=== PATIENT | female | born 1995 | race Caucasian/White ===

== ENCOUNTER 2017-11-23 05:48 | Emergency (ER) | payer OTHER ==
[~2017-11-23] VITALS: Ht 165.1 cm; Wt 107.5 kg
[~2017-11-23 05:48] MED LIST: IBU600 MG PO; MOTRIN 600 MG600 MG PO; PERCOCET 325 MG1 TA2 PO; PRENATAL PLUS I1 TA1 PO; PROZAC20 M2 PO; ZOFRAN ODT4 M1 PO
[2017-11-23] MEDS ORDERED: PRENATAL MULTI1 EAC2 PO (06:00)
--- NOTE | 2017-11-23 06:01 | ED INFLUENZA/URI COMPLAINT ---
History of Present Illness General Chief Complaint: Upper Respiratory Sx/Fever Stated Complaint: 24WKS PREG TP THINKS SHE HAS THE FLU Source: patient Exam Limitations: no limitations Vital Signs & Intake/Output Vital Signs & Intake/Output Vital Signs Date Time Temp Pulse Resp B/P B/P Pulse O2 O2 Flow FiO2 Mean Ox Delivery Rate 11/23 0533 99.1 118 18 97 Room Air 11/23 0600 97 Room Air 11/23 0557 98.7 139 18 115/79 97 Room Air Allergies Coded Allergies: MDX - PCN (penicillin) (PCN (PENICILLIN)) (Intermediate, FACIAL SWELLING ) Reconcile Medications Ondansetron (Zofran Odt) 4 MG TAB.RAPDIS 1 TAB SL TID PRN nausea Pnv No.122/Iron/Folic Acid ( Multi Tablet) 27 MG IRON-800 MCG TABLET 1 TAB PO DAILY (Reported) Triage Note: PT FROM HOME C/O BODY ACHES, N/V/D X1 DAY. PT IS 24 WEEKS , [facility], DUE DATE Mar. PT STATES THAT SINCE YESTERDAY SHE HAS HAD A LOWER GRADE TEMP OF 99.0, N/V/D OF 15+ EPISODES AND BODY ACHES. VSS. A&0X3, NO DISTRESS IN TRIAGE. Triage Nurses Notes Reviewed? yes Onset: Gradual Duration: day(s): Timing: recent history Severity: moderate Prior Episodes/Possible Cause: no prior episodes Modifying Factors: Improves With: rest. Associated Symptoms: n/v/d, muscle aches : Yes Patient currently breastfeeds: No HPI: 22 yo woman, 24 week gestation, presents with nausa, vomiting, diarrhea since yesterday afternoon, soon after eating at [employer]. She notes, "I've been vomiting every hour... and I've had diarrhea all day... My body aches and it feels like I have a low grade fever." She notes no contractions, dysuria, vaginal bleeding or discharge. She is otherwise well. (Delfin PAIZ,Jose Gomez) Past History Travel History Traveled to [place] past 21 day No Medical History Any Pertinent Medical History? 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 No (Delfin PAIZ,Jose Gomez) Review of Systems Review of Systems Constitutional: Reports: no symptoms. EENTM: Reports: no symptoms. Respiratory: Reports: no symptoms. Cardiovascular: Reports: no symptoms. GI: Reports: no symptoms. Genitourinary: Reports: no symptoms. Musculoskeletal: Reports: no symptoms. Skin: Reports: no symptoms. Neurological/Psychological: Reports: no symptoms. Hematologic/Endocrine: Reports: no symptoms. Immunologic/Allergic: Reports: no symptoms. All Other Systems: Reviewed and Negative (Delfin PAIZ,Jose Gomez) Physical Exam Physical Exam General Appearance: well developed/nourished, no apparent distress Head: atraumatic, normal appearance Eyes: Bilateral: normal appearance. Ears, Nose, Throat: normal ENT inspection, tacky membranes Neck: normal inspection, supple Respiratory: normal breath sounds, chest non-tender, no respiratory distress, quiet respiration, lungs clear Cardiovascular: regular rate/rhythm, edema Gastrointestinal: normal bowel sounds, soft, non-tender, no organomegaly Back: normal inspection Extremities: normal inspection, normal capillary refill, normal range of motion, no edema Neurologic/Psych: no motor/sensory deficits, awake, alert, oriented x 3 Skin: intact, normal color, warm/dry Core Measures Sepsis Present: No Sepsis Focused Exam Completed? No (Delfin PAIZ,Jose Gomez) Progress Differential Diagnosis: viral syndrome vs food poisoning vs other. Plan of Care: Orders Procedure Date/time Status BLOOD CULTURE 11/23 0917 Active Add-on Test (ER Only) 11/23 912 Active CULTURE,URINE 11/23 0833 Active URINALYSIS 11/23 605 Complete LIPASE 11/23 605 Complete HEPATIC FUNCTION PANEL 11/23 605 Complete CBC WITHOUT DIFFERENTIAL 11/23 605 Complete BASIC METABOLIC PANEL 11/23 605 Complete AMYLASE 11/23 06 Complete Laboratory Tests 11/23/17 0835: Urine Color YEL, Urine Clarity CLDY H, Urine pH 6.0, Ur Specific [place] 1.010, Urine Protein NEG, Urine Ketones 15 H, Urine Nitrite NEG, Urine Bilirubin NEG, Urine Urobilinogen 0.2, Ur Leukocyte Esterase SMALL H, Ur Microscopic SEDIMENT EXAMINED, Urine RBC 1-3, Urine WBC 3-5 H, Ur Epithelial Cells MANY H, Urine Bacteria FEW H, Urine Hemoglobin NEG, Urine Glucose NEG 11/23/17 0613: Anion Gap 10, Estimated GFR > 60, BUN/Creatinine Ratio 8.6, Glucose 96, Calcium 9.2, Total Bilirubin 0.4, Direct Bilirubin 0.2, AST 25, ALT 22, Alkaline Phosphatase 99, Total Protein 6.4, Albumin 3.3 L, Amylase 65, Lipase 84, CBC w Diff MAN DIFF ORDERED, RBC 4.24, MCV 90.8, MCH 31.3 H, MCHC 34.4, RDW 13.8, MPV 8.3, Gran % 88.1 H, Lymphocytes % 6.5 L, Monocytes % 4.3, Eosinophils % 1.1, Basophils % 0, Absolute Granulocytes 14.5 H, Segmented Neutrophils 76 H, Band Neutrophils 7 H, Absolute Lymphocytes 1.1 L, Lymphocytes 8 L, Monocytes 6, Absolute Monocytes 0.7 H, Eosinophils 3, Absolute Eosinophils 0.2, Absolute Basophils 0, Platelet Estimate ADEQUATE, Normocytic RBCs VERIFIED, Normochromic RBCs VERIFIED, Fld Total RBCs Counted 100 Microbiology 11/23 916 BLOOD: Blood Culture - ORD 11/23 916 BLOOD: Blood Culture - ORD 11/23 08 URINE ROUT: Urine Culture - RECD Initial ED EKG: none Hand-Off Endorsed To: Stevo Appiah DO Endorsed Time: 0700 Pending: labs, other (clinical response) (Delfin PAIZ,Jose Gomez) Departure Departure Disposition: HOME OR SELF CARE Condition: Stable Clinical Impression Primary Impression: Nausea vomiting and diarrhea Referrals: Patient Has No Primary Care Dr (PCP/Family) Departure Forms: Customer Survey General Discharge Information Prescriptions: Current Visit Scripts Ondansetron (Zofran Odt) 1 TAB SL TID PRN nausea #10 TAB Ref 1 Comments 11/23/17, 7am... pt to be signed out to dr. appiah, labs pending, 2 liters normal saline infusing. (Delfin PAIZ,Jose Gomez) Departure Comments 11/23/17 9:30 AM The patient is completely asymptomatic after the IV fluids. She has no abdominal pain. She feels much better. heart tones were 145. Her vital signs are stable. She said that she had significant diarrhea after eating [employer]. She did have leukocytosis with a leftward shift. Also some minimal pyuria. Labs and urine cultures were sent. 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 (Stevo Appiah DO)
[2017-11-23] MEDS ORDERED: ZOFRAN ODT4 M1 SL (06:14)
[2017-11-23 06:32] LABS: ABSOLUTE BASOPHIL COUNT 0 /CUMM (0.0-0.2); ABSOLUTE EOSINOPHIL COUNT 0.2 /CUMM (0.0-0.7); ABSOLUTE GRANULOCYTE CT 14.5 /CUMM (1.4-6.5); ABSOLUTE LYMPH COUNT 1.1 /CUMM (1.2-3.4); ABSOLUTE MONOCYTE COUNT 0.7 /CUMM (0.10-0.60); BASOPHIL % 0 % (0.0-2.0); EOSINOPHIL % 1.1 % (0-5); GRANULOCYTE % 88.1 % (42.2-75.2); HEMATOCRIT 38.5 % (37-47); MEAN CORPUSCULAR HGB 31.3 PG (27.0-31.0); MEAN CORPUSCULAR HGB CONC 34.4 G/DL (33.0-37.0); MEAN CORPUSCULAR VOLUME 90.8 FL (81.0-99.0); MEAN PLATELET VOLUME 8.3 FL (7.4-10.4); PLATELET COUNT 214 /CUMM (130-400); RBC DISTRIBUTION WIDTH 13.8 % (11.5-14.5); RED BLOOD CELL CT 4.24 /CUMM (4.20-5.40); WHITE BLOOD CELL COUNT 16.5 /CUMM (4.8-10.8)
[2017-11-23 09:31] VITALS: BP 115/59
== END 2017-11-23 09:56 ==
LOC: ERH 05:48
PROVIDERS: Pediatrics
DX: O99.89 Other specified diseases and conditions complicating pregnancy, childbirth and the puerperium (principal); R11.2 Nausea with vomiting, unspecified; R19.7 Diarrhea, unspecified; Z3A.24 24 weeks gestation of pregnancy
CPT/HCPCS: 81001; 87040; 87086; 96361; 96374; J2405